=== PATIENT | male | born 1960 | race Caucasian/White ===

== ENCOUNTER 2024-06-16 08:06 | Observation (INO) ==
--- NOTE | 2024-05-08 09:05 | PAT Medication Instructions ---
Medication Instructions Date of Service May 08, 2024 Home Medications alprazolam 0.5 mg tablet (Xanax) 0.5 mg PO QPM aspirin 81 mg tablet,delayed release 81 mg PO QPM glimepiride 2 mg tablet 4 mg PO QPM hydrochlorothiazide 25 mg tablet 25 mg PO QPM imipramine HCl 25 mg tablet 25 mg PO QPM lisinopril 40 mg tablet 40 mg PO QPM ASK your prescriber and surgeon aspirin 81 mg tablet,delayed release 81 mg PO QPM Take evening before surgery alprazolam 0.5 mg tablet (Xanax) 0.5 mg PO QPM glimepiride 2 mg tablet 4 mg PO QPM hydrochlorothiazide 25 mg tablet 25 mg PO QPM imipramine HCl 25 mg tablet 25 mg PO QPM lisinopril 40 mg tablet 40 mg PO QPM NOTHING TO EAT OR DRINK AFTER MIDNIGHT Other Notes If you have any questions please call us at [phone] or [phone] or [phone] or [phone]
--- NOTE | 2024-05-21 12:16 | Anesthesiology Consultation ---
Date of Service May 21, 2024 Assessment & Plan (1) Encounter for pre-operative examination: Outpatient joint assessment: Patient is currently scheduled for inpatient pathway. If re-evaluated and patient/surgeon requests outpatient pathway, patient is acceptable candidate for outpatient joint program from anesthesia standpoint pending surgeon's office assessment of pt motivation/support/completion of same day joint program preop requirements. Chart Review Chart Review: Acceptable Risk for Surgery and Patient seen in Pre Admission Testing Teaching & Discussion Pre-Anesthesia Teaching/Discussion Notes: Instructed NPO after midnight before surgery, except medications with 15 cc of water. Medication instructions provided according to the PAT guidelines. History Surgery Operation Date: 06/16/24 12:00 Proposed Procedures p Right Anterior Total Hip Arthroplasty - Yan Benitez DO Height/Weight Height: 5 ft 6 in Weight: 94.2 kg Allergies Allergy/AdvReac Type Severity Reaction Status Date / Time tetracycline AdvReac Severe Anaphylaxis Verified 05/21/24 12:26 Medications Home Medications Medication Instructions Recorded Confirmed Last Taken alprazolam 0.5 mg tablet (Xanax) 0.5 mg PO QPM 05/02/24 05/02/24 Unknown aspirin 81 mg tablet,delayed 81 mg PO QPM 05/02/24 05/02/24 Unknown release glimepiride 2 mg tablet 4 mg PO QPM 05/02/24 05/02/24 Unknown hydrochlorothiazide 25 mg tablet 25 mg PO QPM 05/02/24 05/02/24 Unknown imipramine HCl 25 mg tablet 25 mg PO QPM 05/02/24 05/02/24 Unknown lisinopril 40 mg tablet 40 mg PO QPM 05/02/24 05/02/24 Unknown Past Medical History Medical History (Updated 05/21/24 @ 12:26 by Genny Link PA-C) Anxiety Arthritis Diabetes mellitus, type 2 NIDDM HTN (hypertension) controlled, stable per pt Rash "I get heat rash pretty frequently - mostly on my chest/stomach" Patient denies h/o stroke, seizures, heart attack, heart failure, blood clots/DVTs or blood transfusions. Exercise / Class Metabolic Activity II 4-5 Yardwork/Stairs/Walk up hill (denies chest discomfort or shortness of breath with one flight of stairs) Past Surgical History Surgical History (Updated 05/21/24 @ 12:27 by Genny Link PA-C) History of tooth extraction Past Anesthesia History No Family Hx of Anesthesia Complications History of PONV No Hx of Motion Sickness Social History Smoking Status: Never smoker Do You Dip or Chew Tobacco: No Hx Alcohol Use: No Hx Substance Use: No substance use type: does not use Review of Systems Occasional snoring, denies witnessed apneas. Patient denies chest pain, shortness of breath, dyspnea on exertion, reflux, fever, chills, cough, wheezing, or palpitations. Physical Exam Vital Signs Vitals BP 124/76 P 75 TEMP 98.5 SP02 95% on RA RESP 18 Physical Patient resting comfortably in chair in no acute distress, alert and oriented, responding appropriately throughout visit Full cervical extension range of motion without pain TMD 3.5 finger breadths Mallampati Score 3 Dentition: edentulous, wears full upper dentures Lungs: normal respiratory effort. Good air movement, clear throughout to auscultation, no adventitious breath sounds Cardiac: regular rate and rhythm, no murmurs noted Carotid arteries: negative bruit bilat Lab Results Anesthesia Preop Results Results Anesthesia Widget: WBC 8.76 K/ul (4.8-10.8) 05/21/24 Hgb 15.3 g/dl (14.0-18.0) 05/21/24 Hct 46.6 % (42.0-52.0) 05/21/24 Plt 167 K/uL (130-400) 05/21/24 Na 138 mmol/L (136-145) 05/21/24 K 4.6 mmol/L (3.5-5.1) 05/21/24 Cl 105 mmol/L (98-107) 05/21/24 CO2 27 mmol/L (21-32) 05/21/24 BUN 22 mg/dl (6-23) 05/21/24 Creat 0.80 mg/dl (0.6-1.4) 05/21/24 Glucose Level 151 mg/dl (70-99(Fasting)) H 05/21/24 PT 10.3 Seconds (9.0-12.0) 05/21/24 PTT 27 Seconds (21-31) 05/21/24 INR 0.9 (0.9-1.1) 05/21/24 HA1c 6.8 % (4.5-5.6) H 05/21/24 Blood Type O Positive 05/21/24 Antibody Screen NEGATIVE 05/21/24 Testing Electrocardiogram Date: 05/21/24 NSR, rate 69 bpm Chest X-Ray Date: 05/21/24 No acute chest disease.
--- NOTE | 2024-06-12 11:48 | History & Physical Report ---
Date of Service June 12, 2024 Assessment & Plan (1) Arthritis of right hip: We will proceed with a right anterior total of arthroplasty. Postoperatively he will be started on aspirin for DVT prophylaxis and kept overnight hospital for postop medical management. He plans to have the hospital set up home health in [place] upon discharge. History of Present Illness Chief Complaint: Osteoarthritis of the right hip. Primary Care Provider: NO PCP Yaakov is a [id number] male who has been dealing with chronic increasing right hip and groin pain. He hashad x-rays from another provider which shows advanced osteoarthritis of the right hip. He has had an intraarticular hip injection with a brief period of relief.After failed conservative treatment, he has elected to proceed with a right anterior total of arthroplasty. Allergies Allergy/AdvReac Type Severity Reaction Status Date / Time tetracycline AdvReac Severe Anaphylaxis Verified 05/21/24 12:26 Home Medications Medication Instructions Recorded Confirmed Type alprazolam 0.5 mg tablet (Xanax) 0.5 mg PO QPM 05/02/24 05/02/24 History aspirin 81 mg tablet,delayed 81 mg PO QPM 05/02/24 05/02/24 History release glimepiride 2 mg tablet 4 mg PO QPM 05/02/24 05/02/24 History hydrochlorothiazide 25 mg tablet 25 mg PO QPM 05/02/24 05/02/24 History imipramine HCl 25 mg tablet 25 mg PO QPM 05/02/24 05/02/24 History lisinopril 40 mg tablet 40 mg PO QPM 05/02/24 05/02/24 History Past Med/Surg History Problem List Encounter for pre-operative examination Arthritis of right hip Right hip pain Low back pain radiating to right lower extremity Medical History Rash "I get heat rash pretty frequently - mostly on my chest/stomach" Arthritis Diabetes mellitus, type 2 NIDDM Anxiety HTN (hypertension) controlled, stable per pt Surgical History History of tooth extraction Social History Smoking Status: Never smoker Second Hand Exposure: No; Do You Dip or Chew Tobacco: No; Tobacco Cessation Education Requested by Patient: No Hx Alcohol Use: No Hx Substance Use: No Preferred Language: Sami Communication Ability: Effective Inventory Associate And Driver Required: No Beliefs That Will Affect Care: None Current Living Situation: Spouse Other Information That Helps Us Care for You: No Feels Safe at Home: Yes Safety Concerns: Feels Safe At This Time Assistive Devices: Denture - Upper, Denture - Lower and Glasses Review of Systems All systems reviewed & are unremarkable except as noted in HPI & below. Physical Exam On physical exam of the right hip, he has decreased range of motion. He has pain with forced internal/external rotation. All of his pain is located in the groin.. Constitutional WD/WN, vitals as above Eyes PERRL, conjunctivae normal, anicteric sclerae ENMT external ear and nose normal, oropharynx normal Neck trachea midline, no thyromegaly Respiratory normal respiratory effort Cardiovascular RRR, no murmur, no edema Gastrointestinal (Abdomen) normal bowel sounds, soft, nontender, no hepatosplenomegaly Psychiatric A+Ox3, euthymic affect Results & Data Results & Data Laboratory Results . Diagnostic Findings X-rays of the right hip show advanced osteoarthritis with joint space narrowing, osteophyte formation, and [id number] articulation. PG Care Time/CCT Total # of Minutes Spent Total Time Spent with Patient: Total time spent is greater than 50% in coordination of care (as documented) at patient's floor/unit and/or counseling patient: Coding Level of Care Code None Diagnoses Arthritis of right hip M16.11
[~2024-06-16 08:06] MED LIST: BUPIVACAINE 0.5 % 5 MG/1 ML PF 10ML VIAL ONE
--- NOTE | 2024-06-16 08:20 | History & Physical Bridge Note ---
Date of Service June 16, 2024 History & Physical Bridge Note I have examined the patient, reviewed the History & Physical and in the interval since the performance of the History & Physical I have noted the following changes of clinical significance: no changes noted
--- OUTSIDE RECORDS SUMMARY | 2024-06-16 08:26 | External Medical Summary | Summary of Care ---
Author Name Unknown Organization [facility] Address [address] [place] [address] Phone [phone] Care Team Providers Care Regional Sales Associate Name Role Phone Luis Alfredo Danielson MD Primary Care Provider Reason for Visit * Reason Onset Date Comments Medication Refill 06/05/2024 Encounter Details Date Type Department Care Team (Late st Contact Info) Description 06/05/2024 Refill [place] [address] [place] [address] [phone] Luis Alfredo Danielson MD [facility] [address] [place] [phone] Generalized anxiety disorder Allergies Active Allergy Reactions Criticality Noted Date Comments Tetracycline Hives 01/14/2014 documented as of this encounter (statuses as of 06/06/2024) Medications Medication Sig Dispensed Refills Start Date End Date Status Blood Glucose Monitoring Suppl (WalkMe ULTRA SYSTEM) W/DEVICE KITIndications:DM type 2, not at goal (HCC) Test blood sugar once daily as directed E11.9 1 Kit 0 12/20/2015 Active acetaminophen (TYLENOL) 325 MG Tablet Take 3 Tabs by mouth every 6 hours. 45 Tab 04/27/2019 Active Ketoconazole 2 % External ShampooIndications :Tinea versicolor Apply to body from neck down. Let on for ten minutes. Rinse off. May repeat weekly as needed. 120 mL 1 01/27/2021 Active Sildenafil Citrate 20 MG Oral Tablet (Revatio) Take two or three tablets about an hour before intimacy if needed. 30 Tablet 2 05/02/2022 Active hydroCHLOROthiazid e 25 MG Oral Tablet (Hydrodiuril)Indic ations:Essential hypertension TAKE 1 TABLET BY MOUTH EVERY DAY 90 Tablet 3 10/15/2023 Active Lisinopril 40 MG Oral TabletIndications: Essential hypertension TAKE 1 TABLET BY MOUTH EVERY DAY IN THE MORNING 100 Tablet 1 01/22/2024 Active Aspirin Low Dose 81 MG Oral Tablet Delayed Release (aspirin enteric coated)Indications :Type 2 diabetes mellitus with hemoglobin A1c goal of less than 7.0% (HCC) TAKE 1 TABLET BY MOUTH EVERY DAY 90 Tablet 2 02/07/2024 Active Glimepiride 2 MG Oral Tablet (Amaryl)Indication s:Type 2 diabetes mellitus with hemoglobin A1c goal of less than 7.0% (HCC) Take 2 Tablets by mouth in the morning. With breakfast. 180 Tablet 3 03/09/2024 Active Imipramine HCl 25 MG Oral Tablet (Tofranil) TAKE 1 TABLET BY MOUTH EVERY DAY 90 Tablet 3 05/16/2024 Active ALPRAZolam 0.5 MG Oral Tablet (xaNAX)Indications :Generalized anxiety disorder TAKE 1 TABLET BY MOUTH THREE TIMES A DAY NEEDED FOR ANXIETY 90 Tablet 06/06/2024 Active ALPRAZolam 0.5 MG Oral Tablet (xaNAX)Indications :Generalized anxiety disorder TAKE 1 TABLET BY MOUTH THREE TIMES A DAY NEEDED FOR ANXIETY 90 Tablet 02/20/2024 06/05/2024 Discontinue d(Refill) documented as of this encounter (statuses as of 06/06/2024) Active Problems Problem Noted Date Diagnosed Date Type 2 diabetes mellitus wit h hemoglobin A1c goal of less than 7.0% 05/02/2022 Dyslipidemia, goal LDL below 70 11/30/2017 Generalized anxiety disorder 06/10/2015 Overview: Xanax once daily Essential hypertension 12/29/2014 documented as of this encounter (statuses as of 06/06/2024) Resolved Problems Problem Noted Date Diagnosed Date Resolved Date Pelvic hematoma, male 04/27/20192023 Closed fracture dislocation of pubic symphysis with diastasis, unspecified laterality, with routine healing, subsequent encounter 04/27/2019 04/03/2024 Closed fracture of transvers e process of lumbar vertebra with routine healing 04/27/201903/2024 Class 2 severe obesity due t o excess calories with serious comorbidity and body mass index (BMI) of 35.0 to 35.9 in adult 01/25/2019 MEDICATION USE AGREEMENT 11/30/201711/2021 Type 2 diabetes mellitus wit h hemoglobin A1c goal of less than 7.0% 06/10/2015 08/30/2021 Screen for colon cancer 06/10/201502/24 Joint pain 06/10/2015 11/27/2016 Overview: He likes to be tested for Lyme dx regularly. 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 Essential hypertension, benign 01/14/2014 11/12/2014 documented as of this encounter (statuses as of 06/06/2024) Immunizations Name Administration Dates Next Due TDAP (age 10 and older)(Boostrix) 08/11/2017 TDAP, Age 7 and older, IM (Adacel) 03/26/2024, documented as of this encounter Social History Tobacco Use Types Packs/Day Years Used Date Smoking Tobacco: Former Smokeless Tobacco: Never Alcohol Use Standard Drinks/Week Comments No 0 (1 standard drink = 0.6 oz pur e alcohol) PHQ-2 Answer Date Recorded PHQ Adult Total Score 0 03/05/2024 Hunger Vital Sign Answer Date Recorded Within the past 12 months, y ou worried that your food would run out before you got the money to buy more. Never true 03/05/20 24 Within the past 12 months, t he food you bought just didn't last and you didn't have money to get more. Never true 03/05/2024 Childcare Answer Date Recorded Do you feel overwhelmed with taking care of a child, family member or friend? No 03/05/2024 Does your family need help f inding childcare? (Household - for ages 0-17 years) Not on file 03/05/2024 Clothing Answer Date Recorded Have you been unable to get clothing when it was really needed? No 03/05/2024 Is your family able to get c lothes or diapers when needed? (Household - for ages 0-17 years) Not on file 03/05/2024 Personal Safety Answer Date Recorded Do you feel unsafe or have concerns for your saf ety? No 03/05/2024 Do you have concerns for you r family's safety? (Household - for ages 0-17 years) Not on file 03/05/2024 Utilities Answer Date Recorded Do you have trouble paying y our heating, water, or electric bill? No 03/05/2024 Is your family able to pay t he heat, water, or electric bill? (Household - for ages 0-17 years) Not on file 03/05/2024 Does your family have access to good internet? (Household - for ages 0-17 years) Not on file 03/05/2024 Employment Status Answer Date Recorded Are you unemployed or without regular income? No 03/05/2024 Does the household have a re lar source of income? (Household - for ages 0-17 years) Not on file 03/05/2024 Social Connections Answer Date Recorded How often do you feel lonely or isolated from th ose around you? Never 03/05/2024 Financial Resource Strain Answer Date R ecorded Do you have any trouble payi ng for your medications, or do you think you might in the future? No 03/05/2024 Does your family have troubl e paying for medicine? (Household - for ages 0-17 years) Not on file 03/05/2024 Transportation Needs Answer Date Record ed Do you have trouble getting a ride to medical visits or work? (Adult - for ages 18 years and over) Not on file 03/05/2024 Does your family have a hard time getting a ride to doctors visits? (Household - for ages 0-17 years) Not on file 03/05/2024 Has lack of transportation k ept you from medical appointments, meetings, work, or from getting things needed for daily living? Check all that apply. No 03/05/2024 Do you (or your family) have trouble finding or paying for a ride (transportation)? (Household - for ages 0-17 years) Not on file 03/05/2024 Housing Stability Answer Date Recorded Do you currently live in a s helter or have no steady place to sleep at night? No 03/05/2024 Do you think you are at risk of becoming homeless? (Adult - for ages 18 years and over) Not on file 03/05/2024 Does your family worry about paying for your home or becoming homeless? (Household - for ages 0-17 years) Not on file 0 03/05/2024 Are you homeless or worried that you might be in the future? No 03/05/2024 Are you (or your family) arina eless or worried that you might be in the future? (Household - for ages 0-17 years) Not on file Food Insecurity Answer Date Recorded Do you need food for this week? No 03/05/2024 Are you able to get enough f ood for your family? (Household - for ages 0-17 years) Not on file 03/05/2024 Does your family need food t his week? (Household - for ages 0-17 years) Not on file 03/05/2024 Do you always have enough fo od for your family? (Household - for ages 0-17 years) Not on file 03/05/2024 Sex and Gender Information Value Date Recorded Sex Assigned at Male 01/11/2019 9:18 AM EDT Gender Identity Male 01/11/2019 9:18 AM EDT Sexual Orientation Straight 01/11/2019 9: 18 AM EDT Job Start Date Occupation Industry Not on file Not on file Not on file documented as of this encounter Functional Status Functional Status Response Date of Assess ment Are you deaf or do you have serious difficulty h earing? No 04/27/2019 Are you blind or do you have serious difficulty seeing, even when wearing glasses? No 04/27/2019 Do you have serious difficul ty walking or climbing stairs? (5 years old or older) No 04/27/2019 Do you have difficulty dress ing or bathing? (5 years old or older) No 04/27/2019 Because of a physical, menta l, or emotional condition, do you have difficulty doing errands alone such as visiting a doctor s office or shopping? (15 years old or older) No 04/27/20 19 Cognitive Status Response Date of Assessm ent Because of a physical, menta l, or emotional condition, do you have serious difficulty concentrating, remembering, or making decisions? (5 years old or older) No 04/27/2019 documented as of this encounter Miscellaneous Notes * Telephone Encounter - Luis Alfredo Danielson MD - 06/06/2024 8:04 PM EDT Signed Prescriptions: Disp Refills ALPRAZolam 0.5 MG Oral Tablet (xaNAX) 90 Tab*0 Sig: TAKE 1 TABLET BY MOUTH THREE TIMES A DAY NEEDED FOR ANXIETYAuthorizing Provider: LUIS ALFREDO DANIELSON----- * Telephone Encounter - Yan Kunz [facility] - 06/06/2024 5:14 PM EDTPending Prescriptions: Disp Refills ALPRAZolam 0.5 MG Oral Tablet (xaNAX) 90 Tab*0 Sig: TAKE 1 TABLET BY MOUTH THREE TIMES A DAY NEEDED FOR ANXIETY * Telephone Encounter - Yan Kunz [facility] - 06/06/2024 5:14 PM EDT I have reviewed the patients controlled substance dispensing history in the Prescription Drug Monitoring Program in compliance with the [facility] regulations before prescribing a controlled substance. PDMP checked on 06/06/2024. Pending Prescriptions: Disp Refills ALPRAZolam 0.5 MG Oral Tablet (xaNAX) 90 Tab*0 Sig: TAKE 1 TABLET BY MOUTH THREE TIMES A DAY NEEDED FOR ANXIETY Last Visit: 04/03/2024 (in office), 07/28/2020 (telemedicine) Next Visit: Visit date not found Date medication was last filled: 02-20-24 Date medication is due for refill: 03-20-24 Pharmacy: [id number] [address] Is this request for a controlled substance? Yes and Urine Drug Screen Not completed Toxicology results: Results for orders placed or performed during the hospital encounter of 04/26/19 TOX SCREEN, URINE, W/ CONFIRMATION Result Value Amphetamine NEGATIVE Benzodiazepines NEGATIVE Cannabinoids NEGATIVE Cocaine Metabolite NEGATIVE HYDROCODONE NEGATIVE Morphine / Codeine POSITIVE (A) METHADONE METABOLITE NEGATIVE OXYCODONE NEGATIVE TOX COMMENT THE ABOVE SCREENING RESULTS ARE PRESUMPTIVE AND CAN ONLY BE USED FOR MEDICAL PURPOSES. POSITIVE RESULTS REFLEX TO CONFIRMATORY TESTING. Cutoff Concentration Please approve if appropriate. Yan Kunz, Jesse.Ph. Clinical Pharmacist [facility] ([facility]) [address] [place] [address], [address] [place]: [phone] 06/06/2024,5:14 PM * Telephone Encounter - Meo Meadows, chemistry physics teacher - 06/05/2024 3:57 PM EDT Did you pend patient's preferred pharmacy and medication before forwarding?yes Pharmacy: [id number] Pending Prescriptions: Disp Refills ALPRAZolam 0.5 MG Oral Tablet (xaNAX) 90 Tab*0 Sig: TAKE 1 TABLET BY MOUTH THREE TIMES A DAY NEEDED FOR ANXIETY Last Visit: 04/03/2024 (in office), 07/28/2020 (telemedicine) Next Visit: Visit date not found If no future appointments scheduled, and last appointment is greater than a year ago, please schedule patient for a follow-up appointment Last date the medication was ordered: 02/20/2024 Is this request for a controlled substance?Yes, What was the last refill date 02/20/2024 w/ quantity 90 and dosage 0.5 and Urine Drug Screen Not completed Urine Drug Screen: Results for orders placed or performed during the hospital encounter of 04/26/19 TOX SCREEN, URINE, W/ CONFIRMATION Result Value Amphetamine NEGATIVE Benzodiazepines NEGATIVE Cannabinoids NEGATIVE Cocaine Metabolite NEGATIVE HYDROCODONE NEGATIVE Morphine / Codeine POSITIVE (A) METHADONE METABOLITE NEGATIVE OXYCODONE NEGATIVE TOX COMMENT THE ABOVE SCREENING RESULTS ARE PRESUMPTIVE AND CAN ONLY BE USED FOR MEDICAL PURPOSES. POSITIVE RESULTS REFLEX TO CONFIRMATORY TESTING. Cutoff Concentration Patient Phone Numbers Labs: Lab Results Component Value Date/Time CREAT 0.8 10/02/2023 08:34 AM CREAT 0.8 08/02/2020 09:02 AM POTASSIUM 4.1 10/02/2023 08:34 AM POTASSIUM 4.5 08/02/2020 09:02 AM LDL 91 04/03/2024 01:14 PM LDL 106 08/02/2020 09:02 AM LDL NOT APPLICABLE 08/02/2020 09:02 AM LDLCALC 85 11/05/2014 12:00 AM ALT 29 04/26/2019 08:15 PM HGBA1C 7.4 (H) 04/03/2024 01:14 PM HGBA1C 6.7 (H) 08/02/2020 09:02 AM documented in this encounter Plan of Treatment Upcoming Encounters Date Type Department Care Team (Late st Contact Info) Description 07/03/2024 8:00 AM EST Office Visit [facility] [address] [place] [address] Luis Alfredo Danielson MD [address] [facility] [address] [place] [phone] 07/09/2024 11:20 AM EST Office Visit [facility] [address] [place] [address] Lenore Booker PA-C [address] [facility] [address] [place] [address] [phone] Health Maintenance Due Date Last Done Comments Pneumococcal Vaccine: Pediatrics (0 to 5 Years) and At-Risk Patients (6 to 64 Years) (1 of 2 - PCV) 1965 HIV Screening 1974 Cologuard 2004 Colonoscopy 2004 Colorectal Cancer Screening 2004 Fecal Occult Blood Test 2004 Sigmoidoscopy 2004 Zoster Vaccines (1 of 2) 2009 Diabetic Foot Exam 01/27/2022 01/27/2021, 0 05/07/2019, 11/30/2017, Additional history exists COVID-19 Vaccine ( season) 2024 Influenza Vaccine (FLU shot) (#1) 2024 Diabetic Eye Exam 09/18/2024 09/18/2023, , 08/04/2021, Additional history exists Albumin/Creatinine Ratio 10/02/2024 024, 01/20/2017, 06/13/2016, Additional history exists GFR 10/02/2024 10/02/2023, 06/0 01/2023, 08/30/2021, Additional history exists HbA1c 10/04/2024 04/03/2024, 07/1 , 10/02/2023, Additional history exists Depression Screening 03/05/2025 03/05/2024 Lipid Panel 04/03/2029 04/03/2024, 06/0 01/2023, 08/02/2020, Additional history exists DTap/Tdap Vaccines (4 - Td or Tdap) 03/26/2034 03/26/2024, 08/11/2017, 12/25/2009 HPV (Gardasil) Vaccine Aged Out No lo nger eligible based on patient's age to complete this topic Hepatitis B Vaccine Aged Out No longe r eligible based on patient's age to complete this topic MENINGOCOCCAL (MENACTRA/MENVEO) Aged Out No longer eligible based on patient's age to complete this topic documented as of this encounter Medical Devices Not on filedocumented as of this encounter Visit Diagnoses Diagnosis Generalized anxiety disorder documented in this encounter Advance Directives * Full Code (Latest Code Status on File) Date Activated Date Inactivated Comments 04/27/2019 1:15 AM 04/27/2019 6:43 PM Question Answer Comments Discussion of Advance Directives occurred with: Not Discussed Does the patient have a Living Will? No Does the patient have Health Care Power of Attor tea? No Care Teams Regional Sales Associate Relationship Specialty Start Date End Date Luis Alfredo Danielson MD [address] [facility] [address] [place] [id number] PCP - General Family Medicine 03/12/18 documented as of this encounter
[2024-06-16] MEDS: FAMOTIDINE 20 MG TAB PO SCH (09:11)
[2024-06-16] MEDS: dexAMETHasone**PF** 10 MG/ML VIAL IV SCH (09:11)
[2024-06-16] MEDS: GABAPENTIN 300 MG CAP PO SCH (09:11)
[2024-06-16] MEDS: ACETAMINOPHEN 500 MG TAB PO SCH ×2 (09:11→17:19)
[2024-06-16] MEDS: LR 60ML/HR IV SCH (09:12)
[2024-06-16] MEDS: LR 500ML BOLUS, THEN 15ML/HR IV SCH (09:12)
[2024-06-16] MEDS ORDERED: MIDAZOLAM HCL 1 MG/ML 2ML VIAL ONE (09:23)
[2024-06-16] MEDS ORDERED: fentaNYL citrate PF 100 MCG/2 ML VIAL ONE (09:23)
[2024-06-16] MEDS ORDERED: ONDANSETRON INJ 2 MG/ML 2 ML VIAL IV PRN ×2 (10:01→13:07)
[2024-06-16] MEDS ORDERED: ePHEDrine sulfate 50 MG/ML AMP IV PRN (10:01)
[2024-06-16] MEDS ORDERED: ATROPINE SULFATE 0.1 MG/ML 10ML SYR IV PRN (10:01)
[2024-06-16] MEDS ORDERED: fentaNYL citrate PF 100 MCG/2 ML VIAL IV PRN (10:01)
[2024-06-16] MEDS ORDERED: ONDANSETRON INJ 2 MG/ML 2 ML VIAL ONE (10:05)
[2024-06-16] MEDS ORDERED: LIDOCAINE 2% 2 ML VIAL/AMP(20MG/ML) INFIL ONE (10:05)
[2024-06-16] MEDS: TRANEXAMIC ACID 1,000 MG **IV Pre-op IV SCH (10:05)
[2024-06-16] MEDS ORDERED: PROPOFOL IV EMULSION 10 MG/ML 20 ML VIAL IV ONE ×3 (10:05)
[2024-06-16] MEDS: ceFAZolin 2000MG 2,000 MG/15 ML SYR IV SCH ×2 (10:22→18:38)
[2024-06-16] MEDS: ROPIV 0.5% 246mg, Ketorolac 30mg, EPINEPHrine 0.5mg in NSS INFIL SCH (10:45)
[2024-06-16] MEDS: ORTHO JOINT ANESTHETIC ONE (10:45)
[2024-06-16] MEDS ORDERED: PHENYLEPHRINE 100MCG/ML 10ML SYR IV ONE (10:47)
[2024-06-16] MEDS ORDERED: VASOPRESSIN 20 UNIT/ML VIAL ONE (10:49)
[2024-06-16] MEDS: TRANEXAMIC ACID 1,000 MG **IV Intra-op IV SCH (11:31)
--- NOTE | 2024-06-16 11:32 | Operative Report ---
PG Post Operative Report Pre & Post Diagnosis Operation Date: 06/16/24 10:20 Pre-Op Diagnosis: Right Hip Arthritis Post-Op Diagnosis: Right Hip Arthritis I identified the patient and participated in the time-out.: Yes Procedure Operation Date: 06/16/24 10:20 Actual Procedures p Right Anterior Total Hip Arthroplasty(Right) - Yan Benitez DO Surgeon Yan Benitez DO Tea Bag Machine Tender Yan Tavera PA-C Estimated Blood Loss 200 Findings Consistent with Post-Op Diagnosis Specimens Right femoral head Description of Procedure Implants used I used a ZimmerBiomet total hip arthroplasty system with a size 2 high offset Avenir Complete stem, a 54 mm G7 cup with a 25mm screw, an E1 polyethylene liner, a 40 mm ceramic head with a 0 neck. Tanvir arrived at the hospital for the above procedure. He was seen in the preoperative holding area and the operative extremity was identified and signed. He was given a spinal anesthetic, a preoperative antibiotic, and TXA. He was then taken back to the operating room and laid on the table in the supine position. He was given basic sedation. The operative leg was secured to a ristst leg positioner. The hip was then prepped and draped in sterile fashion. A timeout was done and the patient and the operative extremity was properly identified. An anterior approach was used. Dissection was taken down through the fascia and the tensor muscle belly was retracted laterally and the rectus was retracted medially. The circumflex vessels were identified and ligated. The capsule was then incised and tagged for later repair. The femoral neck was then cut and the femoral head was removed. The acetabulum was exposed. Time was spent doing a complete circumferential labral release. Sequential reaming of the acetabulum up to a size 53 reamer was done. Final reamings were done under fluoroscopy to ensure appropriate version. A Biomet 54 mm G7 cup was then impacted into place. A single 25 mm screw was placed. The E1 polyethylene liner was then snapped into place. Surrounding soft tissues were then injected with 100 cc of an orthopedic pain control cocktail. The proximal femur was then exposed. Sequential broaching up to a size 2 broach was done. Off that broach a size 40 head with a 0 neck was trialed. The hip was reduced and fluoroscopic images showed anatomic alignment of the implants in acceptable length. The broach was removed. The final size 2 high offset Avenir Complete stem was then impacted into place. A ceramic 40 mm head with a 0 neck was then impacted onto the stem and the hip was reduced. Final fluoroscopic images showed anatomic alignment of the hip. The capsule was then closed with #1 Vicryl suture. A dilute betadyne lavage was then done for 3 minutes. The joint was then irrigated with normal saline solution. The fascia was closed with #1 PDS suture. Skin was closed with 2-0 Vicryl, amalia, and a Silverlon dressing. He was then transferred to a hospital bed and taken to the post anesthesia care unit in stable condition. He tolerated the procedure well. Yan Tavera PA-C, was present for the entire procedure. He was critical for patient positioning, prepping, draping, retraction exposure, wound closure and application of sterile dressing. I attest to the content of the Intraoperative Record and any orders documented therein. Any exceptions are noted below.
--- NOTE | 2024-06-16 12:35 | Fluoroscopy Report ---
INTRAOPERATIVE RADIOGRAPH CLINICAL HISTORY: Right hip arthroplasty placement. Fluoro time: 20 seconds Ka,r: 2.66 mGy FINDINGS: A single spot fluoroscopic image of the right hip is presented. Correlation made with radio graphs dated 04/29/2024. A bipolar right hip arthroplasty is in near anatomic alignment. A single corti samy lag screw transfixes the acetabular cup. There is no evidence of acute fracture on this fluorosco pic image. Overlying soft tissue edema is observed. IMPRESSION: Intraoperative image from a right hip arthroplasty procedure as above. Electronically signed by: Daniel Graf M.D. 06/16/2024 12:33 PM
--- NOTE | 2024-06-16 12:53 | XRay Report ---
SINGLE VIEW PELVIS; SINGLE VIEW RIGHT HIP CLINICAL HISTORY: Postoperative examination. FINDINGS: An AP portable view of the hips and pelvis with a crosstable lateral portable view of the r ight hip are compared to study dated 04/29/2024. A bipolar right hip arthroplasty is in near-anatomic a lignment. A single cortical lag screw transfixes the acetabular cup. No acute fracture is identified. There are expected postoperative changes overlying the right hip including skin clips, subcutaneous gas, and soft tissue swelling. Mild arthritic change is seen in the left hip. There is degenerative s clerosis of the pubic symphysis. IMPRESSION: Expected postoperative findings status post right hip arthroplasty. No acute fracture is seen. ACT 112: Negative or not required by law. Electronically signed by: Daniel Graf M.D. 06/16/2024 12:51 PM
--- NOTE | 2024-06-16 13:02 | Anesthesiology Progress Note ---
Date of Service June 16, 2024 Anesthesia Post Procedure Vital Signs Vital Signs: Temp Pulse Pulse Resp BP Pulse Ox O2 Del Method 06/16/24 12:45 97.5 F L 74 18 122/66 95 Room Air 06/16/24 12:35 82 16 99/62 L 94 Room Air 06/16/24 12:25 78 18 100/54 L 95 Room Air 06/16/24 12:15 82 16 108/58 L 96 Room Air 06/16/24 12:05 86 20 123/73 96 Room Air 06/16/24 11:55 86 14 122/77 97 Oxymask 06/16/24 11:48 97.3 F L 78 16 99/55 L 95 Oxymask 06/16/24 08:40 98.2 F 68 18 141/83 H 96 Room Air O2 Flow Rate 06/16/24 12:45 06/16/24 12:35 06/16/24 12:25 06/16/24 12:15 06/16/24 12:05 06/16/24 11:55 4 06/16/24 11:48 6 06/16/24 08:40 Transfer of Care Handoff Completed per policy Notes Mental Status: alert / awake / arousable and participated in evaluation Patient Amnestic to Procedure: Yes Nausea / Vomiting: adequately controlled Pain: adequately controlled Airway Patency, RR, SpO2: stable & adequate BP & HR: stable & adequate Hydration State: stable & adequate Neuraxial Anesthesia: was administered and sensory block is resolving Anesthetic Complications: no major complications apparent and Pt Satisfied with anesthetic care
[2024-06-16] MEDS ORDERED: MAGNESIUM HYDROXIDE SUSP 30 ML UDC PO PRN (13:07)
[2024-06-16] MEDS ORDERED: oxyCODONE HCL IR 5 MG TAB (IMMEDIATE RELEASE) PO PRN (13:07)
[2024-06-16] MEDS ORDERED: bisacodyL 10 MG SUPP PR PRN (13:07)
[2024-06-16] MEDS ORDERED: NALOXONE HCL 0.4 MG/1 ML VIAL/CARP IV PRN (13:07)
[2024-06-16] MEDS ORDERED: METOCLOPRAMIDE HCL INJ 5 MG/ML 2 ML VIAL IV PRN (13:07)
[2024-06-16] MEDS ORDERED: HYDROmorphone INJ 0.5 MG/0.5 ML SYR IV PRN (13:07)
[2024-06-16] MEDS ORDERED: PHARMACY GLYCEMIC MGMT CONSULT PRN (13:07)
--- NOTE | 2024-06-16 13:49 | Pharmacy Report ---
Pharmacy Glycemic Short Note 2 - Date of Service June 16, 2024 - Glycemic Short BSG Results (Last 24 hours): 06/16/24 06/16/24 06/16/24 08:45 11:50 12:49 POC Glucose 174 H 200 H 247 H OUTPATIENT ANTIDIABETIC REGIMEN: * Glimepiride 4mg QPM * A1c 6.8% 05/21/24 ASSESSMENT: * TR here postop Right Hip Total Arthroplasty. Pharmacy consulted to manage pt's T2DM while inpatient. Pt received 10 mg dexamethasone IV preop. BSGs increased after surgery. Concerns for steroid-induced hyperglycemia, therefore will give now dose of Lantus. Will add some overnight checks. * Pt ordered T2DM diet. PLAN FOR INPATIENT GLYCEMIC CONTROL: * Hold outpatient oral diabetes medications * Basal insulin * Lantus 15 units SQ NOW * Bolus insulin * NovoLog per scale ACHS or Q6hrs while NPO * Goal Range: Low 110 mg/dL - High 140 mg/dL * Correction Factor: 20 mg/dL/unit * Nutritional / Prandial insulin per carb ratio of 1 unit per 7 grams CHO consumed
[2024-06-16] MEDS: LANTUS PER UNIT CHARGE SC STA (13:55)
[2024-06-16] MEDS: SODIUM CHLORIDE 0.9% 1,000 ML IV SCH (13:56)
[2024-06-16] MEDS: KETOROLAC 30 MG/ML VIAL IV SCH (13:57)
[2024-06-16] MEDS ORDERED: DEXTROSE 50% 50 ML SYRINGE IV PRN (14:00)
[2024-06-16] MEDS ORDERED: GLUCOSE 10 TAB/TUBE PO PRN (14:00)
[2024-06-16] MEDS ORDERED: GLUCAGON FOR INJ 1 MG VIAL SQ PRN (14:00)
[2024-06-16] MEDS ORDERED: GLUCOSE 40% GEL 15 GM TUBE PO PRN (14:00)
[2024-06-16] MEDS ORDERED: CARBOHYDRATES FOR HYPOGLYCEMIA PO PRN (14:00)
[2024-06-16] MEDS: INSULIN ASPART PER UNIT CHARGE SC SCH (14:06)
[2024-06-16] MEDS: DOCUSATE SODIUM 100 MG CAP PO SCH (21:06)
[2024-06-16] MEDS: hydroCHLOROthiazide 25 MG TAB PO SCH (21:06)
[2024-06-16] MEDS: ASPIRIN 81 MG ECTAB PO SCH (21:06)
[2024-06-16] MEDS: IMIPRAMINE HCL 25 MG TAB PO SCH (21:06)
[2024-06-16] MEDS: ALPRAZolam 0.5 MG TABLET PO SCH (21:06)
[2024-06-16] MEDS: lisinopril 40 MG TAB PO SCH (21:06)
[2024-06-16] MEDS: SENNA 8.6 MG TAB PO SCH (21:06)
[2024-06-17] MEDS: INSULIN ASPART PER UNIT CHARGE SC SCH (00:05)
--- NOTE | 2024-06-17 07:17 | Orthopedic Progress Note ---
Date of Service June 17, 2024 Assessment & Plan (1) Status post right hip replacement: Overall he is doing very well. He is not having much pain in the right hip. He will be seen by physical therapy today for ambulation and range of motion exercises. He is on aspirin for DVT prophylaxis. He can be discharged to home later today. He will follow-up orthopedics in 2 weeks. Virginia Ramey was seen and examined at bedside this morning. Overall he is doing fairly well. He is not having much pain in the right hip. He has been up and ambulating to the bathroom. He has no complaints.. Review of Systems All systems reviewed & are unremarkable except as noted in HPI & below. Physical Exam On physical exam of the right hip, the dressing is clean and dry. His leg is out full extension. He has active dorsiflexion plantarflexion of his right ankle.. Results & Data Results & Data Laboratory Results . Diagnostic Findings Postoperative x-rays of the right hip show the prosthesis to be in anatomic alignment without any evidence of fracture complication, or loosening.. PG Care Time/CCT Total # of Minutes Spent Total Time Spent with Patient: Total time spent is greater than 50% in coordination of care (as documented) at patient's floor/unit and/or counseling patient: Coding Level of Care Code 08971 Post Operative Follow-Up Diagnoses Status post right hip replacement Z96.641
--- NOTE | 2024-06-17 07:18 | Discharge Summary ---
Date of Service June 17, 2024 Admission HPI (Per Admitting) Yaakov is a [id number] male who has been dealing with chronic increasing right hip and groin pain. He hashad x-rays from another provider which shows advanced osteoarthritis of the right hip. He has had an intraarticular hip injection with a brief period of relief.After failed conservative treatment, he has elected to proceed with a right anterior total of arthroplasty. Admission Exam (Per Admitting) On physical exam of the right hip, he has decreased range of motion. He has pain with forced internal/external rotation. All of his pain is located in the groin.. Principal Diagnosis Same as "Discharge Diagnosis" noted below under Discharge Instructions. Discharge Exam On physical exam of the right hip, the dressing is clean and dry. His leg is out full extension. He has active dorsiflexion plantarflexion of his right ankle.. Discharge Data Procedures Performed Operation Date: 06/16/24 10:20 Actual Procedures p Right Anterior Total Hip Arthroplasty(Right) - Yan Benitez DO Ordered Studies 06/16/24 10:20 FL hip RT 1V Routine Hospital Course (1) Status post right hip replacement: On June 16 2014 Yaakov arrived at [facility] and underwent a right hip replacement without complication. He had a spinal anesthetic. Po stoperatively he was started on aspirin for DVT prophylaxis and transferred to the general orthopedic floors. His hospital course was uneventful. On postop day #1, his vital signs were stable and his pain was well-controlled. He was able to participate well with physical therapy doing ambulation and range of motion exercises. He was then discharged to home. He will follow-up orthopedics in 2 weeks. PG Care Time/CCT Total # of Minutes Spent Total Time Spent with Patient: Total time spent is greater than 50% in coordination of care (as documented) at patient's floor/unit and/or counseling patient: Discharge Plan Discharge Items Patient Disposition: Home - Self-Care Reason For Visit: Right Hip Arthritis Discharge Diagnosis: Right hip replacement Activity: Per Instructions section Non-emergency contact: Surgeon Call non-emergency contact if: your wound has increased redness and your wound has increased drainage Follow-up/Referrals: PCP,NO [Primary Care Provider] - Diet: Regular Addtl Attending Provider Instructions: Activity and Therapy Recommendations: * If you are using [facility] then therapy will be provided at your home until they feel you have accomplished all of your goals. * If you are using [facility] then Physical Therapy will be provided until they feel you are ready to start Outpatient Physical Therapy. * If you are not using home therapy then Outpatient Physical Therapy should start about 3-5 days from your day of surgery. Therapy will last about 6-10 weeks * You were shown a series of exercises in the hospital. Do these exercises three times each day including the exercises you were shown in physical therapy. * Get up and walk several times each day.~ For the first four weeks, try not to stand or walk for more than one hour at a time. If you do stand or walk for more than one hour, you will not hurt anything, but your leg will likely swell.~~ * As you feel comfortable, you may change from the walker or crutches to a cane and~then to independent walking. Medications: * Narcotic You will likely be sent home from the hospital with a prescription for the narcotic pain medication that worked best throughout your stay. * Cefadroxil -take the antibiotic twice a day for 10 days to help prevent infection. * Aspirin Most patients will be required to take Aspirin 81mg twice a day for 6 weeks after surgery. This is obtained [id number] and a prescription is not necessary. * Other medications may be prescribed for specific circumstances. If you have any questions, please call the office at . * Resume previous home medications unless otherwise instructed TEDs/Elastic Stockings: The white elastic stockings help limit swelling and prevent blood clots from forming in your legs. The more you wear them, the more they work. Wear them for six weeks. Dressing Care: Leave the Silverlon dressing in place for 7 days. After 7 days you may remove the dressing. If the incision is not draining then you may leave the amalia open to air. If there is a little bit of drainage or if the amalia are getting stuck on your clothing then cover the incision with a dry dressing. The amalia will be removed at your 2 week follow-up appointment. Showering: You may shower with the Silverlon dressing in place. Do not let the shower spr ay hit the dressing directly. Pat the Silverlon dressing dry. If the dressing becomes wet underneath, then simply remove the dressing. Keep the incision dry until you are 7 days out from the day of surgery. After 7 days you may remove the Silverlon dressing and shower with the amalia exposed. Let soapy water run over the amalia and pat them dry. Do not scrub or soak the incision. Diet: You may resume your previous diet. Things To Watch For: * Drainage from the incision site that occurs more than one week after your surgery. * Increased redness at the incision site. * Fever above 102 degrees Fahrenheit. * Unusual chest pain or shortness of breath. * Call [facility] at with any of the above problems Follow-Up Visit: Follow-up with Dr. Benitez's PA (Yan Tavera) 2-3 weeks after your day of surgery. He will remove your amalia and answer any questions. If you have any additional questions or concerns, Dr Benitez is usually in the office at the same time and will be available An appointment was probably scheduled when you signed-up for surgery in the office. If you have any questions call Office Instructions: More detailed instructions as well as Frequently Asked Questions were provided in a folder by our office when you signed-up for surgery. Please review these instructions when you get home. If you have any further questions or concerns, please feel free to call the office at [phone] Pending Studies at Discharge: No Stand-Alone Forms: [facility], Smoking Cessation Medications and DC Order Prescriptions: New oxycodone 5 mg tablet 5 mg PO Q6H PRN (Reason: pain) Qty: 30 0RF cefadroxil 500 mg capsule 500 mg PO BID 10 Days Qty: 20 0RF aspirin [Adult Aspirin Regimen] 81 mg tablet,delayed release (DR/EC) 81 mg PO BID Qty: 84 0RF Continued aspirin 81 mg tablet,delayed release (DR/EC) 81 mg PO QPM glimepiride 2 mg tablet 4 mg PO QPM alprazolam [Xanax] 0.5 mg tablet 0.5 mg PO QPM hydrochlorothiazide 25 mg tablet 25 mg PO QPM lisinopril 40 mg tablet 40 mg PO QPM imipramine HCl 25 mg tablet 25 mg PO QPM Discharge Orders: Discharge Order (Routine); Ordered 06/17/24 Ordered By: Yan Benitez Admission Data Admit Date/Time: 06/16/24 11:52 Attending Provider: Yan Benitez Admit Provider: Yan Benitez Primary Care Provider: [facility]
[2024-06-17 08:02] VITALS: RESP 18
[2024-06-17] MEDS: MULTIVITAMIN TAB PO SCH (09:07)
[2024-06-17 11:10] VITALS: BP 162/86; PULSE 64; TEMP 97.3; O2SAT 97
== END 2024-06-17 11:08 | disposition home or self-care (01) ==
LOC: ASU 08:06 → 3N 08:06